=== PATIENT | female | born 1970 | race Asian ===

== ENCOUNTER → 2022-03-25 11:34 | Outpatient (CLI) | payer OTHER, SELFPAY ==
[2022-03-25 12:57] LABS: COVID19 -Nasal RAPID Negative (Negative)
== END ==
PROVIDERS: Visit Provider Surgery
DX: Z20.822 Contact with and (suspected) exposure to COVID-19 (principal); Z01.812 Encounter for preprocedural laboratory examination
CPT/HCPCS: 87635; C9803

== ENCOUNTER 2022-03-28 10:06 | Day surgery (SDC) | payer OTHER, SELFPAY ==
[2022-03-28] VITALS (7 sets, daily range): BP systolic 98–137; BP diastolic 53–87; PULSE 56–68; RESP 14–19; TEMP 36.3–36.7; O2SAT 98–99; BMI 23.8
--- NOTE | 2022-03-28 | PATH_ITS ---
[facility] Accession Number: [id number] . 01 Material submitted: . PART A: duodenum - DUODENAL BULB EROSIONS BIOPSIES PART B: gastrointestinal site - ANTRUM BIOPSY PART C: gastrointestinal site - GASTRIC POLYPS PART D: esophagus, E-G Junction - GE JUNCTION BIOPSY . 01 Clinical history: . UNSPECIFIED ABDOMINAL PAIN . 01 Diagnosis: A. Duodenum, Bulb Erosions, Biopsies: Superficial fragments of ulcerated duodenal mucosa. Negative for intraepithelial lymphocytosis. Negative for dysplasia and malignancy. . B. Stomach, Antrum, Biopsy: Antral mucosa with mild chronic gastritis. Negative for Helicobacter by immunohistochemistry. Negative for intestinal metaplasia. Negative for dysplasia and malignancy. . C. Stomach, Polyps, Biopsies: Fundic gland polyps. No evidence of Helicobacter organisms on H/E stain. Negative for intestinal metaplasia. Negative for dysplasia and malignancy. . D. Gastroesophageal Junction, Biopsy: Columnar mucosa with mild chronic inflammation. Negative for intestinal metaplasia. Negative for dysplasia and malignancy. [facility] 03/31/2022 1733 Local . 01 Electronically signed: . Sola Alford MD, Pathologist NPI- [id number] . 01 Gross description: . Part A: DUODENAL BULB EROSIONS BIOPSIES: Received in formalin is 1 fragment(s) of michaud, soft tissue measuring 0.3 x 0.2 x 0.1 cm submitted entirely in 1 cassette(s) Part B: ANTRUM BIOPSY: Received in formalin is 1 fragment(s) of michaud, soft tissue measuring 0.5 x 0.2 x 0.1 cm submitted entirely in 1 cassette(s) Part C: GASTRIC POLYPS: Received in formalin are 4 fragment(s) of michaud, soft tissue measuring 0.4 x 0.2 x 0.2 cm to 0.3 x 0.2 x 0.2 cm submitted entirely in 1 cassette(s) Part D: GE JUNCTION BIOPSY: Received in formalin is 1 fragment(s) of michaud, soft tissue measuring 0.2 x 0.2 x 0.1 cm submitted entirely in 1 cassette(s) /CPE 03/29/2022 0538 Local . 01 Microscopic: . B. An immunohistochemical stain was performed to evaluate for Helicobacter organisms and is negative. The control stain showed appropriate reactivity. . * This test was developed and its performance characteristics determined by [employer]. It has not been cleared or approved by the U.[place]. Food and Drug Administration. The FDA has determined that such clearance or approval is not necessary. This test is used for clinical purposes. It should not be regarded as investigational or for research. . 01 Pathologist provided ICD-10: R10.9 . 01 CPT . 928919, 280600, 295621, 823073, H53220 Specimen Comment: A courtesy copy of this report has been sent to [phone] Performed at: 01 [facility] [address] [place] [address], [place], [place] [id number] MD Hakeem Lodnon MD Phone: [phone]
--- NOTE | 2022-03-28 10:46 | PM.HP.1 ---
History of Present Illness History of Present Illness Date Patient Seen: 03/28/22 Time Patient Seen: 10:46 Chief complaint: SDC Narrative: Family history of gastric cancer abnormal imaging. Epigastric pain. Also here for colon cancer screening. Review of Systems Review of Systems ROS: Yes All systems reviewed with the patient and are negative except as otherwise documented Exam Vital Signs (past 8 hours): - 03/28/22 10:23 Temperature 97.3 F L Pulse Rate 68 Respiratory Rate 18 Blood Pressure 109/74 Pulse Oximetry 99 Oxygen Delivery Method Room Air Oxygen Delivery Method Room Air Const General: cooperative HENMT Head: normal to inspection Eyes General: appearance normal, both eyes and all related structures Neck Neck: normal visual inspection Chest Chest: normal inspection of the chest Resp Effort & Inspection: normal respiratory effort Cardio Rate: regular rate GI Inspection: normal to inspection Skin General: no rashes or lesions noted Neuro General: patient alert and patient awake Extrem General: normal to inspection and no pedal edema Psych Appearance: grossly normal Assessment & Plan Assessment & Plan narrative: 51-year-old female with a family history of gastric cancer, epigastric pain, abnormal ultrasound imaging. EGD and colonoscopy for colon cancer screening is pursued today. Time Spent With Patient Critical Care time: I spent a total of [] minutes of critical care time on this patient's care today; this time is exclusive of procedural time.
--- NOTE | 2022-03-28 10:48 | PM.PREOP ---
Pre-operative Note COVID-19 COVID-19 status: Negative Result date/Date tested (Pos, Neg/Pending): 03/25/22 Criteria for continued procedure: Possibility delay results in more complex future surgery or treatment Interval Note History & Physical reviewed/Exam performed by Physician: Yes Changes to H&P: No ASA Class (for procedural sedation): I
[2022-03-28] MEDS: SODIUM CHLORIDE 0.9% 1,000 ML 84 ML IV (11:08)
--- NOTE | 2022-03-28 13:13 | P.OP.EGD&C_ITS ---
Operative Date/Time/Diagnoses Date of procedure: 03/28/22 Time of procedure: 13:14 Pre-op diagnosis: Family history of gastric cancer, epigastric pain, abnormal imaging. Colon cancer screening. Post-op diagnosis: same Procedure & Clinicians Study performed: EGD with biopsies and colonoscopy Same procedure as scheduled: Yes Indications: Family history of gastric cancer, epigastric pain, abnormal imaging. Colon cancer screening. Surgeon: Jus Rodriguez Procedure Notes SCOAP/Timeout: Done Procedure in detail: After the risks and benefits were explained, written and verbal informed consent was obtained. The patient was brought into the procedure room and placed into the left lateral decubitus position. Please see nurse credit and collections representative notes for sedation details. The scope was introduced into the mouth through the bite block and advanced under direct visualization to the 2nd portion of the duodenum. The scope was slowly withdrawn carefully examining the mucosa for any defects or lesions. Retroflexed views were accomplished in the stomach. The stomach was decompressed, the scope was then removed from the patient who tolerated the procedure well. The patient was then turned around a digital rectal examination accomplished no significant pathology appreciated apart from grade 3 mild internal nonbleeding nonthrombosed hemorrhoids. The scope was introduced into the rectum and advanced to the cecum as identified by the appendiceal orifice and ileocecal valve. The scope was slowly withdrawn to carefully examine the mucosa for any defects or lesions. Multiple direct views were made through the dentate line for exclusion of pathology. The colon was decompressed scope removed the patient who tolerated the procedure well. Pediatric colonoscope Bowel prep adequate Scope withdrawal time: 7 minutes Sedation minutes: 31 Complications: none Impression: 1. Duodenum: There was some mild scattered subtle erosions in the proximal duodenum. A couple of these areas were targeted for biopsy. 2. Stomach: No mass lesions no outlet obstruction no ulcers. Antral biopsies were taken for exclusion of H pylori infection. There were several scattered small polyps throughout the body and proximal stomach. A couple of these were sampled for histopathologic analysis. Otherwise retroflexed views of the LES were unremarkable. 3. Esophagus: The squamocolumnar junction correlated with the top of the gastric folds. However the Z-line was slightly wondering. GE junction was at 39 cm from the incisors. There was suggestion of mild inflammation at the Z- line. This would be consistent with LA grade B erosive esophagitis. Biopsy from the GEJ was accomplished for histopathologic analysis. The remainder of the esophagus was unremarkable. 4. Colon: No significant pathology was appreciated throughout. Endoscopic diagnosis 1. Gastric polyps 2. Mild duodenopathy 3. LA grade B erosive esophagitis 4. Grade 3 hemorrhoids 5. Otherwise visually unremarkable colonoscopy Post-procedure Plan for aftercare: 1. Await histopathology. 2. Surveillance upper endoscopy will be contingent on histologic findings. 3. Repeat colonoscopy 10 years. Disposition: PACU
--- NOTE | 2022-03-28 13:30 | SUR.PHASEI ---
1324 Telephone Processing Lead called. Pt denied pain, difficulty breathing, nausea. Requested apple juice.
== END 2022-03-28 14:20 | disposition home or self-care (01) ==
PROVIDERS: PCP Student in an Organized Health Care Education/Training Program; Referring Provider Internal Medicine Gastroenterology; Visit Provider Internal Medicine Gastroenterology
PROC: 0DJ08ZZ Inspection of Upper Intestinal Tract, Via Natural or Artificial Opening Endoscopic (ICD-10-PCS; CPT 43235; principal; 2022-03-28 12:30)
PROC: 0DJD8ZZ Inspection of Lower Intestinal Tract, Via Natural or Artificial Opening Endoscopic (ICD-10-PCS; CPT 45378; 2022-03-28 12:30)
DX: Z12.11 Encounter for screening for malignant neoplasm of colon (principal); K64.2 Third degree hemorrhoids; Z80.0 Family history of malignant neoplasm of digestive organs; K29.50 Unspecified chronic gastritis without bleeding; K31.7 Polyp of stomach and duodenum; K21.00 Gastro-esophageal reflux disease with esophagitis, without bleeding; K44.9 Diaphragmatic hernia without obstruction or gangrene; R10.13 Epigastric pain
CPT/HCPCS: 43239; G0105; J2704; J3010